=== PATIENT | female | born 1965 | race Caucasian/White ===

== ENCOUNTER 2017-04-18 12:37 | Day surgery (SDC) | payer OTHER ==
[~2017-04-18] VITALS: Ht 172.7 cm; Wt 97.2 kg
[2017-04-18 14:35] VITALS: Ht 172.7 cm; Wt 97.2 kg
[2017-04-18] MEDS ORDERED: METFORMIN (14:40)
[2017-04-18] MEDS ORDERED: MIDAZOLAM 1 MG/ML 2 ML INJ ONE (15:18)
[2017-04-18] MEDS ORDERED: LIDOCAINE 2% (SDV) 5 ML INJ ONE (15:18)
[2017-04-18] MEDS ORDERED: PROPOFOL 20 ML ONE (15:18)
[2017-04-18] MEDS ORDERED: FENTAnyl 50 MCG/ML VIAL ONE (15:18)
[2017-04-18 15:26] VITALS: BP 127/77; PULSE 67; RESP 23
--- NOTE | 2017-04-18 15:41 | OPPN ---
Date/Time of Note Date/Time of Note DATE: 04/18/17 TIME: 15:41 Operative Report Preoperative Diagnosis Screening Postoperative Diagnosis Internal hemorrhoids No colon neoplasm was identified Operation/Procedure Performed Colonoscopy Surgeon see signature line microbiology lab assistant None Anesthesia: MAC Estimated blood loss: none Transfusion Required none Specimen None Grafts/Implants none Complications none CHRIS ESQUEDA MD Apr 18, 2017 15:41
[2017-04-18 16:00] VITALS: BP 106/67; RESP 36
--- NOTE | 2017-04-18 21:03 | GILP ---
DATE OF PROCEDURE: NAME OF PROCEDURE: Colonoscopy. SURGEON: Chris Brunson MD PREOPERATIVE DIAGNOSIS: Screening colonoscopy. POSTOPERATIVE DIAGNOSES: 1. Colonoscopy all the way to the cecum. 2. Internal hemorrhoids. 3. No colon neoplasm was identified. INDICATION FOR THE PROCEDURE: Ms. Berkley Cardenas is a 51-year-old female patient who was scheduled for screening colonoscopy. The procedure and possible complications were well explained to the patient, the patient understood and consented to the procedure. DESCRIPTION OF PROCEDURE: Under the influence of anesthesia, the colonoscope was carefully introduc ed in the rectum and under direct vision, it was advanced all the way to the cecum. FINDINGS: The patient had internal hemorrhoids. No colon neoplasm was identified. The patient tolerated the procedure very well and there was no complication from the procedure. At the end of the procedure, she was awake with stable vital signs and she was discharged home to the are of her family. IMPRESSION: Please see postoperative diagnoses. PLAN: Next screening colonoscopy in 10 years. Dictated By: CHRIS SALAZAR/JESUS Conf#: [id number] DID#: [id number]
== END 2017-04-18 19:11 | disposition home or self-care (01) ==
LOC: GIL 12:37
PROVIDERS: ATTEND Internal Medicine Gastroenterology
DX: Z12.11 Encounter for screening for malignant neoplasm of colon (principal); K64.8 Other hemorrhoids; E11.9 Type 2 diabetes mellitus without complications
CPT/HCPCS: 45378; J2250; J3010; Z7610